=== PATIENT | female | born 1990 | race African-American/Black ===

== ENCOUNTER 2016-10-07 07:53 | Emergency (ER) | payer OTHER ==
[2016-10-07 08:02] VITALS: BP 140/74; PULSE 67; TEMP 98.6; BMI 22.4
[2016-10-07] MEDS: IBUPROFEN 400 MG TABLET (FP) PO ONE (08:49)
[2016-10-07] MEDS ORDERED: IBUPROFEN 400 MG TABLET (FP) PO ONE (08:50)
--- NOTE | 2016-10-07 08:50 | PDOC ---
History of Present Illness - General Chief Complaint: Pain, Acute Stated Complaint: KNEE PAIN Time Seen by Provider: 10/07/16 08:44 History Source: Patient Exam Limitations: No Limitations - History of Present Illness Initial Comments: 10/07/16 08:45 Patient is here with complaints of right knee swelling. Patient denies pain, denies any recent injury, denies any fevers redness or illness recently. 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 Occurred: reports: last week Severity: reports: mild Pain Location: reports: lower extremity (right knee ) Method of Injury: Yes: unknown Modifying Factors: improves with: None Past History - Travel Traveled outside of the country in the last 30 days: No Close contact w/someone who was outside of country & ill: No - Past Medical History Allergies/Adverse Reactions: Allergies Allergy/AdvReac Type Severity Reaction Status Date / Time No Known Allergies Allergy Verified 10/07/16 07:59 Home Medications: Ambulatory Orders NK [No Known Home Medication] 10/07/16 Other medical history: PATIENT DENIES MEDICAL HX - Psycho/Social/Smoking Cessation Hx Anxiety: No Suicidal Ideation: No Smoking History: Never smoked Hx Alcohol Use: Yes (occasionally) Drug/Substance Use Hx: No Trauma Specific PMHX - Complaint Specific PMHX Back Injury: No Neck Injury: No Review of Systems - Review of Systems Able to Perform ROS?: Yes Is the patient limited Swedish proficient: Yes Constitutional: Yes: See HPI. No: Symptoms Reported, Chills, Fever, Loss of Appetite, Malaise HEENTM: No: Symptoms Reported Respiratory: No: Symptoms reported ABD/GI: No: Symptoms Reported : No: Symptoms Reported Musculoskeletal: Yes: Symptoms Reported, See HPI, Joint Pain, Joint Swelling ( right knee ) Neurological: No: Symptoms reported All Other Systems: Reviewed and Negative *Physical Exam - Vital Signs Last Vital Signs Temp Pulse Resp BP Pulse Ox 98.6 F 67 16 140/74 100 10/07/16 07:55 10/07/16 07:55 10/07/16 07:55 10/07/16 07:55 10/07/16 07:55 - Physical Exam General Appearance: Yes: Nourished, Appropriately Dressed. No: Apparent Distress HEENT: positive: NAZARIO, Normal ENT Inspection, TMs Normal, Pharynx Normal Neck: positive: Supple Respiratory/Chest: positive: Lungs Clear, Normal Breath Sounds Musculoskeletal: positive: Normal Inspection. negative: Decreased Range of Motion Extremity: positive: Normal Capillary Refill, Normal Range of Motion, Other ( swelling and mild ballotment to right knee,. No produced tenderness to medial, lateral, posterior fossa ligaments. ). negative: Normal Inspection, Tender Integumentary: positive: Normal Color. 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, Fully Oriented, Alert, Normal Mood/ Affect, Normal Response, Motor Strength 5/5 Progress Note - Progress Note Progress Note: Right knee strain, will treat with immobilizer, NSAIDs and follow-up with orthopedist *DC/Admit/Observation/Transfer Diagnosis at time of Disposition: Strain of right knee Qualifiers: Encounter type: initial encounter Qualified Code(s): S86.911A - Strain of unspecified muscle(s) and tendon(s) at lower leg level, right leg, initial encounter - Discharge Dispostion Disposition: HOME Condition at time of disposition: Stable Admit: No - Referrals Referrals: Michael Guevara MD [Primary Care Provider] - Vik Mathew MD [Staff Physician] - - Patient Instructions Printed Discharge Instructions: DI for Knee Pain Additional Instructions: Rest, ice to area on and off for 15 minutes 4-6 times a day Avoid heavy lifting or exercise until pain and swelling is resolved or until further directed Keep area highly elevated to reduce swelling Use splints/Bartolo wrap as directed Followup with orthopedist in one to 2 days if not improving, if significantly improved may wait one week for followup with orthopedist May use ibuprofen 2-200 mg tablets every 6 hours as needed for pain
[2016-10-07] MEDS ORDERED: IBUPROFEN 100 MG/5 ML UNIT DOSE CUPS ONE (08:53)
== END 2016-10-07 09:04 | disposition home or self-care (01) ==
LOC: JERFT 07:53 → JER 07:53 → JERFT 09:04
PROC: 2W3LXYZ Immobilization of Right Lower Extremity using Other Device (ICD-10-PCS; principal; 2016-10-07)
DX: S86.811A Strain of other muscle(s) and tendon(s) at lower leg level, right leg, initial encounter (principal); X58.XXXA Exposure to other specified factors, initial encounter; Y93.89 Activity, other specified; Y92.89 Other specified places as the place of occurrence of the external cause
CPT/HCPCS: 99281-25

== ENCOUNTER 2017-08-11 10:15 | Emergency (ER) | payer SELFPAY ==
[2017-08-11 10:29] VITALS: BP 123/73; PULSE 90; TEMP 98.1; BMI 22.6
[2017-08-11] MEDS ORDERED: ONDANSETRON *ODT* 4 MG TABLET SL ONE (11:27)
--- NOTE | 2017-08-11 11:27 | PDOC ---
History of Present Illness - General Chief Complaint: Cold Symptoms Stated Complaint: COUGH, DIARRHEA Time Seen by Provider: 08/11/17 11:16 Past History - Past Medical History Allergies/Adverse Reactions: Allergies Allergy/AdvReac Type Severity Reaction Status Date / Time Penicillins Allergy Verified 08/11/17 10:25 Home Medications: Ambulatory Orders NK [No Known Home Medication] 10/07/16 CVA: No COPD: No DVT: No - Immunization History Immunization Up to Date: Yes - Suicide/Smoking/Psychosocial Hx Smoking History: Never smoked Have you smoked in the past 12 months: No Information on smoking cessation initiated: No Hx Alcohol Use: No Drug/Substance Use Hx: No Substance Use Type: None *Physical Exam - Vital Signs Last Vital Signs Temp Pulse Resp BP Pulse Ox 98.1 F 90 17 123/73 99 08/11/17 10:26 08/11/17 10:26 08/11/17 10:26 08/11/17 10:26 08/11/17 10:26 ED Treatment Course - LABORATORY CBC & Chemistry Diagram: 08/11/17 12:18 08/11/17 12:18 *DC/Admit/Observation/Transfer Diagnosis at time of Disposition: Gastroenteritis - Discharge Dispostion Disposition: HOME Condition at time of disposition: Stable Admit: No - Referrals Referrals: Brianna Abdi MD [Primary Care Provider] - - Patient Instructions Printed Discharge Instructions: DI for Viral Gastroenteritis -- Adult Additional Instructions: Your lab work today shows that you have a viral illness most likely causing your nausea, diarrhea and night sweats. This should go away on its own within the next the 3-5 days. Zofran was sent to your pharmacy for nausea. You may take this every 8 hours as needed for nausea. Drink plenty of fluids. Your ultrasound was negative for gallbladder issues. Please drink plenty of fluids and eat a bland diet including bananas, apple sauce, toast and plain rice. Please follow up with your primary care provider within the week if your symptoms are not resolving. Return to the ED if you have worsening abdominal pain, weakness, fatigue, shortness of breath, dehydration, or have any changes in your symptoms. - Post Discharge Activity Forms/Work/School Notes: Back to Work
--- NOTE | 2017-08-11 12:14 | PDOC ---
*Physical Exam - Vital Signs Last Vital Signs Temp Pulse Resp BP Pulse Ox 98.1 F 90 17 123/73 99 08/11/17 10:26 08/11/17 10:26 08/11/17 10:26 08/11/17 10:26 08/11/17 10:26 ED Treatment Course - LABORATORY CBC & Chemistry Diagram: 08/11/17 12:18 08/11/17 12:18 Medical Decision Making - Medical Decision Making 08/11/17 12:14 Pt seen by the Advanced Practice Provider under my direct supervision Ancillary studies reviewed I agree with plan as outlined by the Advanced Practice Provider SANDOR Limon *DC/Admit/Observation/Transfer Diagnosis at time of Disposition: Gastroenteritis - Discharge Dispostion Disposition: HOME Condition at time of disposition: Stable - Referrals Referrals: Brianna Abdi MD [Primary Care Provider] - - Patient Instructions Printed Discharge Instructions: DI for Viral Gastroenteritis -- Adult Additional Instructions: Your lab work today shows that you have a viral illness most likely causing your nausea, diarrhea and night sweats. This should go away on its own within the next the 3-5 days. Zofran was sent to your pharmacy for nausea. You may take this every 8 hours as needed for nausea. Drink plenty of fluids. Your ultrasound was negative for gallbladder issues. Please drink plenty of fluids and eat a bland diet including bananas, apple sauce, toast and plain rice. Please follow up with your primary care provider within the week if your symptoms are not resolving. Return to the ED if you have worsening abdominal pain, weakness, fatigue, shortness of breath, dehydration, or have any changes in your symptoms. - Post Discharge Activity Forms/Work/School Notes: Back to Work
[2017-08-11 12:25] LABS: URINE APPEARANCE CLEAR; URINE BILIRUBIN NEGATIVE (NEGATIVE); URINE BLOOD NEGATIVE (NEGATIVE); URINE COLOR DKYELLOW; URINE GLUCOSE (UA) NEGATIVE (NEGATIVE); URINE KETONE NEGATIVE (NEGATIVE); URINE LEUK ESTERASE NEGATIVE (NEGATIVE); URINE NITRITE NEGATIVE (NEGATIVE)
[2017-08-11 12:28] LABS: URINE PROTEIN 1+ (NEGATIVE)
[2017-08-11 12:29] LABS: EPI CELLS RARE /HPF (FEW); URINE MUCUS MODERATE
[2017-08-11 12:29] LABS: BASO % 0.9 % (0-2.0); EOS % 0.6 % (0-4.5); HEMATOCRIT 44.4 % (32.4-45.2); HEMOGLOBIN 14.5 GM/dL (10.7-15.3); LYMPH % 56.3 % (8-40); MCH 29.2 pg (25.7-33.7); MCHC 32.7 g/dl (32.0-36.0); MEAN CELL VOLUME 89.5 fl (80-96); MEAN PLT VOLUME 7.9 fl (7.5-11.1); MONO % 16.2 % (3.8-10.2); PLATELET COUNT 236 K/MM3 (134-434); RBC 4.96 M/mm3 (3.60-5.2); RDW 13.2 % (11.6-15.6); WHITE BLOOD COUNT 3.5 K/mm3 (4.0-10.0)
[2017-08-11 13:06] LABS: ALBUMIN 3.8 g/dl (3.4-5.0); ALK PHOS 89 U/L (45-117); ANION GAP 7 (8-16); BILIRUBIN,TOTAL 0.3 mg/dL (0.2-1.0); BLOOD UREA NITROGEN 11 mg/dL (7-18); CALCIUM 8.2 mg/dL (8.5-10.1); CHLORIDE 108 mmol/L (98-107); CO2 26 mmol/L (21-32); CREATININE 0.7 mg/dL (0.55-1.02); GLUCOSE,RANDOM 82 mg/dL (74-106); SGOT/AST 12 U/L (15-37); SGPT/ALT 14 U/L (12-78); SODIUM 141 mmol/L (136-145); TOT PROT 7.5 g/dl (6.4-8.2)
== END 2017-08-11 14:47 | disposition home or self-care (01) ==
LOC: JERFT 10:15 → JER 10:15
DX: K52.9 Noninfective gastroenteritis and colitis, unspecified (principal)
CPT/HCPCS: 36415; 76700-TC; 80053; 81003; 81015; 85025; 87086; 99281-25

== ENCOUNTER 2019-02-03 07:15 | Inpatient (IN) | payer OTHER | END 2019-02-06 13:40 | disposition home or self-care (01) | LOC: JLDR 07:15 → J3W 02-04 06:15 ==

== ENCOUNTER 2020-10-31 10:55 | Emergency (ER) | payer OTHER ==
[2020-10-31 11:01] VITALS: BP 136/91; PULSE 98; TEMP 99; BMI 24.8
[2020-10-31] MEDS ORDERED: ACETAMINOPHEN 500 MG TABLET (FP) PO ONE (11:23)
[2020-10-31] MEDS ORDERED: ACETAMINOPHEN 325 MG TABLET (FP) ONE (11:27)
== END 2020-10-31 13:10 | disposition home or self-care (01) ==
LOC: FER 10:55
DX: M25.561 Pain in right knee (principal)
CPT/HCPCS: 73562-TC-RT-FY; 99283-25

== ENCOUNTER 2021-08-12 09:46 | Emergency (ER) | payer OTHER ==
[2021-08-12 09:50] VITALS: BP 92/72; PULSE 80; TEMP 98.8; BMI 23.6
[2021-08-12] MEDS ORDERED: ACETAMINOPHEN 500 MG TABLET (FP) PO ONE (09:59)
[2021-08-12] MEDS ORDERED: ACETAMINOPHEN 500 MG TABLET (FP) ONE (10:46)
== END 2021-08-12 12:04 | disposition home or self-care (01) ==
LOC: FER 09:46
DX: R51.9 Headache, unspecified (principal); M54.50 Low back pain, unspecified
CPT/HCPCS: 70450-TC; 72125-TC; 72131-TC; 81025; 99285-25

== ENCOUNTER 2022-04-05 04:17 | Day surgery (SDC) | payer OTHER ==
[2022-04-02 10:03] VITALS: BMI 22.6
[2022-04-05] MEDS ORDERED: MIDAZOLAM HCL 2 MG/2 ML SINGLE DOSE VIAL ONE (11:12)
[2022-04-05] MEDS ORDERED: PROPOFOL 20 ML ONE (11:42)
[2022-04-05] MEDS ORDERED: ACETAMINOPHEN 325 MG TABLET (FP) PO PRN (12:02)
[2022-04-05] MEDS ORDERED: IBUPROFEN 400 MG TABLET (FP) PO PRN (12:02)
[2022-04-05] MEDS ORDERED: ONDANSETRON 4 MG/2 ML VIAL IVPUSH PRN (12:18)
[2022-04-05 13:36] VITALS: RESP 18; TEMP 97.3
[2022-04-05 14:01] VITALS: BP 122/76; PULSE 63
== END 2022-04-05 14:20 | disposition home or self-care (01) ==
LOC: JASU-SURG 04:17
PROVIDERS: ATTEND Specialist
PROC: 10D17ZZ Extraction of Products of Conception, Retained, Via Natural or Artificial Opening (ICD-10-PCS; principal; 2022-04-05 11:42)
DX: O02.1 Missed abortion (principal); Z3A.08 8 weeks gestation of pregnancy
CPT/HCPCS: 88305-TC; 94760

== ENCOUNTER 2022-12-22 12:04 | Emergency (ER) | payer OTHER ==
[2022-12-22 12:28] VITALS: BP 129/79; PULSE 73; RESP 18; TEMP 98; BMI 23.8
[2022-12-22 12:59] LABS: HCG,QUALITATIVE URINE Negative
[2022-12-22 13:00] LABS: EPITHELIAL CELLS FEW /hpf
[2022-12-22] MEDS ORDERED: CEPHALEXIN MONOHYDRATE 500 MG CAPSULE (UD) PO ONE (13:27)
[2022-12-22] MEDS ORDERED: CEPHALEXIN MONOHYDRATE 500 MG CAPSULE (UD) ONE (13:30)
== END 2022-12-22 13:38 | disposition home or self-care (01) ==
LOC: FER 12:04
DX: R10.30 Lower abdominal pain, unspecified (principal); R30.0 Dysuria; R35.0 Frequency of micturition; N30.00 Acute cystitis without hematuria
CPT/HCPCS: 81003; 81015; 84703; 87086; 87186; 99283-25

== ENCOUNTER 2023-07-20 12:31 | Emergency (ER) | payer OTHER ==
[2023-07-20 12:51] VITALS: BMI 25.7
[2023-07-20] MEDS ORDERED: LACTATED RINGERS SOLUTION 1000 ML INFUS.BAG IV ONE ×2 (13:18→15:13)
[2023-07-20] MEDS ORDERED: ACETAMINOPHEN 1000 MG/100 ML BAG IVPB ONE (13:18)
[2023-07-20] MEDS ORDERED: ACETAMINOPHEN INJECTION 100 ML IVPB ONE (13:27)
[2023-07-20 14:05] LABS: EPI CELLS 31 /uL (0-25.1); HYALINE CASTS 2 /uL (0-3.1); PH,URINE 6.5 (5.0-8.0); URINE APPEARANCE CLEAR; URINE BACTERIA 164 /uL (0-1359); URINE BILIRUBIN NEGATIVE (NEGATIVE); URINE COLOR YELLOW; URINE GLUCOSE (UA) NEGATIVE (NEGATIVE); URINE KETONE TRACE (NEGATIVE); URINE LEUK ESTERASE TRACE (NEGATIVE); URINE NITRITE NEGATIVE (NEGATIVE); URINE PROTEIN 1+ (NEGATIVE); URINE RBC 35 /uL (0-23.9); URINE WBC 21 /uL (0-25.8)
[2023-07-20 14:12] LABS: HEMATOCRIT 31.6 % (32.4-45.2); HEMOGLOBIN 10.3 GM/dL (10.7-15.3); MCH 27.5 pg (25.7-33.7); MCHC 32.5 g/dl (32.0-36.0); MEAN CELL VOLUME 84.8 fl (80-96); MEAN PLT VOLUME 8.6 fl (7.5-11.1); PLATELET COUNT 244 10^3/uL (134-434); RBC 3.73 M/mm3 (3.60-5.2); RDW 13.2 % (11.6-15.6)
[2023-07-20 14:22] LABS: POTASSIUM 4.3 mmol/L (3.5-5.1)
[2023-07-20 14:26] LABS: ALBUMIN 2.6 g/dl (3.4-5.0); BLOOD UREA NITROGEN 8.5 mg/dL (7-18)
[2023-07-20 14:29] LABS: CREATININE 0.7 mg/dL (0.55-1.3)
[2023-07-20 14:31] LABS: BILIRUBIN,TOTAL 0.3 mg/dL (0.2-1); TOT PROT 6.8 g/dl (6.4-8.2)
[2023-07-20 14:41] LABS: ANISOCYTOSIS 0; MACROCYTOSIS 0
[2023-07-20] MEDS ORDERED: CEPHALEXIN MONOHYDRATE 500 MG CAPSULE (UD) PO ONE (14:58)
[2023-07-20] MEDS ORDERED: OSELTAMIVIR PHOSPHATE 75 MG CAPSULE PO ONE (15:25)
[2023-07-20] MEDS ORDERED: OSELTAMIVIR PHOSPHATE 75 MG CAPSULE ONE (15:41)
[2023-07-20] MEDS ORDERED: CEPHALEXIN MONOHYDRATE 500 MG CAPSULE (UD) ONE (15:41)
[2023-07-20 17:11] VITALS: BP 109/67; PULSE 85; RESP 16; TEMP 99.1
== END 2023-07-20 17:56 | disposition home or self-care (01) ==
LOC: JER 12:31
PROC: 3E033NZ Introduction of Analgesics, Hypnotics, Sedatives into Peripheral Vein, Percutaneous Approach (ICD-10-PCS; principal; 2023-07-20)
DX: O99.891 Other specified diseases and conditions complicating pregnancy (principal); R55 Syncope and collapse; O99.513 Diseases of the respiratory system complicating pregnancy, third trimester; J10.1 Influenza due to other identified influenza virus with other respiratory manifestations; Z3A.31 31 weeks gestation of pregnancy; Z20.822 Contact with and (suspected) exposure to COVID-19
CPT/HCPCS: 0241U-QW; 36415; 80053; 81003; 84484; 85025; 86850; 86900; 86901; 87086; 93005; 93010; 99284-25

== ENCOUNTER 2023-09-16 07:45 | Inpatient (IN) | payer OTHER ==
[2023-09-16 09:05] LABS: BASO % 0.3 % (0-2.0); EOS % 0.8 % (0-4.5); HEMATOCRIT 30.8 % (32.4-45.2); HEMOGLOBIN 9.8 GM/dL (10.7-15.3); LYMPH % 34.8 % (8-40); MCH 25.1 pg (25.7-33.7); MCHC 31.9 g/dl (32.0-36.0); MEAN CELL VOLUME 78.9 fl (80-96); MEAN PLT VOLUME 9.4 fl (7.5-11.1); MONO % 10.9 % (3.8-10.2); NEUT % 53.2 % (42.8-82.8); PLATELET COUNT 225 10^3/uL (134-434); WHITE BLOOD COUNT 6.1 K/mm3 (4.0-10.0)
[2023-09-16 09:11] LABS: INR 0.9 (0.83-1.09); PROTHROMBIN TIME (PATIENT) 10.4 SEC (9.7-13.0)
[2023-09-16 09:14] LABS: ACTIVATED PTT 26.3 SECONDS (25.2-36.5)
[2023-09-16 09:25] LABS: CALCIUM 8.5 mg/dL (8.5-10.1)
[2023-09-16 09:26] LABS: BLOOD UREA NITROGEN 10.7 mg/dL (7-18)
[2023-09-16 09:30] LABS: CREATININE 0.7 mg/dL (0.55-1.3)
[2023-09-16 09:50] VITALS: BMI 27.3
[2023-09-16] MEDS ORDERED: OXYTOCIN 30 UNITS in 0.9% NS 30 UNIT/500 ML INFUS.BAG IVPB ONE (10:08)
[2023-09-16] MEDS: ELECTROLYTE-148 SOLN 1,000 ML IV SCH (10:25)
[2023-09-16] MEDS: OXYTOCIN 30 UNITS in 0.9% NS 30 UNIT/500 ML INFUS.BAG IVPB SCH (10:30)
[2023-09-16] MEDS ORDERED: BUTORPHANOL TARTRATE 2 MG/ML VIAL ONE (15:44)
[2023-09-16] MEDS ORDERED: PROMETHAZINE HCL 25 MG/1 ML VIAL ONE (15:44)
[2023-09-16] MEDS: PROMETHAZINE HCL 25 MG/1 ML VIAL IVPB ONE (15:50)
[2023-09-16] MEDS: BUTORPHANOL TARTRATE 2 MG/ML VIAL IVPB ONE (15:50)
[2023-09-16] MEDS ORDERED: BUTORPHANOL TARTRATE 1 MG/ML VIAL IVPB ONE (15:50)
[2023-09-16] MEDS ORDERED: OXYTOCIN 20 UNITS in 0.9% NS 20 UNIT/1,000 ML INFUS.BAG IV ONE (19:40)
[2023-09-16] MEDS: OXYTOCIN 20 UNITS in 0.9% NS 20 UNIT/1,000 ML INFUS.BAG IV SCH (19:55)
[2023-09-16] MEDS: MISOPROSTOL 200 MCG TABLET PR SCH (20:03)
[2023-09-16] MEDS: METHYLERGONOVINE MALEATE 0.2 MG/1 ML AMP IM PRN (20:03)
[2023-09-16] MEDS ORDERED: BENZOCAINE 20% 57 GM BOTTLE TP PRN (20:24)
[2023-09-16] MEDS ORDERED: WITCH HAZEL 50% (TUCKS) 40 PAD/JAR PAD TP PRN (20:24)
[2023-09-16] MEDS ORDERED: BISACODYL 10 MG SUPP.RECT RC PRN (20:24)
[2023-09-16] MEDS ORDERED: BENZOCAINE 28 GM HEMORRHOIDAL OINTMENT TP PRN (20:24)
[2023-09-16] MEDS ORDERED: ACETAMINOPHEN 325 MG TABLET (FP) PO PRN (20:24)
[2023-09-16] MEDS: CLINDAMYCIN 900 MG PREMIX IVPB 900 MG/50 ML BAG IVPB ONE (20:37)
[2023-09-16] MEDS ORDERED: GENTAMICIN SO4 80 MG/2 ML VIAL ONE (21:07)
[2023-09-16] MEDS ORDERED: SODIUM CHLORIDE 100 ML IVPB ONE (21:07)
[2023-09-16] MEDS: GENTAMICIN 80 MG PREMIXED IVPB 80 MG/100 ML BAG IVPB ONE (21:15)
[2023-09-16] MEDS ORDERED: MISOPROSTOL 200 MCG TABLET ONE (22:40)
[2023-09-17 00:06] VITALS: RESP 18
[2023-09-17 09:08] LABS: BASO % 0.2 % (0-2.0); HEMATOCRIT 28.7 % (32.4-45.2); HEMOGLOBIN 9.2 GM/dL (10.7-15.3); LYMPH % 20.7 % (8-40); MCH 25.3 pg (25.7-33.7); MCHC 31.9 g/dl (32.0-36.0); MEAN CELL VOLUME 79.3 fl (80-96); MEAN PLT VOLUME 9.8 fl (7.5-11.1); NEUT % 71.1 % (42.8-82.8); PLATELET COUNT 260 10^3/uL (134-434); RBC 3.62 M/mm3 (3.60-5.2); RDW 15.5 % (11.6-15.6); WHITE BLOOD COUNT 15.2 K/mm3 (4.0-10.0)
[2023-09-17] MEDS: PRENATAL VITAMINS W/ FOLIC ACID TABLET (FP) PO SCH (09:13)
[2023-09-17] MEDS: FERROUS SO4 325 MG TABLET (FP) PO SCH (09:13)
[2023-09-17] MEDS: IBUPROFEN 600 MG TABLET (FP) PO PRN (09:13)
[2023-09-17 09:20] LABS: POTASSIUM 4.1 mmol/L (3.5-5.1)
[2023-09-17 09:21] LABS: CALCIUM 8.4 mg/dL (8.5-10.1)
[2023-09-17 09:22] LABS: BLOOD UREA NITROGEN 9.4 mg/dL (7-18)
[2023-09-17 09:25] LABS: CREATININE 0.8 mg/dL (0.55-1.3)
[2023-09-17] MEDS ORDERED: SENNOSIDES/DOCUSATE COMBO (SENNA PLUS) TABLET (UD) PO PRN (22:00)
[2023-09-17 22:52] VITALS: PULSE 83
[2023-09-18 09:38] VITALS: BP 136/85; TEMP 98
== END 2023-09-18 12:25 | disposition home or self-care (01) | DRG 560 ==
LOC: JLDR 07:45 → J3W 22:15
PROVIDERS: ADMIT Obstetrics & Gynecology; ATTEND Obstetrics & Gynecology
PROC: 10E0XZZ Delivery of Products of Conception, External Approach (ICD-10-PCS; principal; 2023-09-16)
PROC: 0HQ9XZZ Repair Perineum Skin, External Approach (ICD-10-PCS; 2023-09-16)
DX: O70.0 First degree perineal laceration during delivery (principal); Z3A.39 39 weeks gestation of pregnancy; Z37.0 Single live birth
CPT/HCPCS: 36415; 80048; 85025; 85610; 85730; 86780; 86850; 86900; 86901

== ENCOUNTER 2024-02-10 10:57 | Emergency (ER) | payer OTHER ==
[2024-02-10 11:04] VITALS: BP 122/90; RESP 16; TEMP 99.5; BMI 24.4
[2024-02-10] MEDS ORDERED: ACETAMINOPHEN 500 MG TABLET (FP) ONE (11:19)
[2024-02-10] MEDS: ACETAMINOPHEN 500 MG TABLET (FP) PO ONE (11:24)
[2024-02-10 11:55] VITALS: PULSE 114
== END 2024-02-10 12:17 | disposition home or self-care (01) ==
LOC: FER 10:57
DX: R05.9 Cough, unspecified (principal); R06.02 Shortness of breath; B34.9 Viral infection, unspecified; Z20.822 Contact with and (suspected) exposure to COVID-19
CPT/HCPCS: 0241U-QW; 71046-TC-FY; 99284-25

== ENCOUNTER 2024-08-15 11:50 | Inpatient (IN) | payer OTHER ==
[2024-08-15] MEDS ORDERED: OXYTOCIN 30 UNITS in 0.9% NS 30 UNIT/500 ML INFUS.BAG IVPB ONE (14:10)
[2024-08-15] MEDS: LACTATED RINGERS SOLUTION 1,000 ML/1,000 ML INFUS.BAG IV SCH (14:25)
[2024-08-15] MEDS: OXYTOCIN 30 UNITS in 0.9% NS 30 UNIT/500 ML INFUS.BAG IVPB SCH (14:30)
[2024-08-15 14:56] VITALS: BMI 26.3
[2024-08-15 15:32] LABS: BASO % 0.8 % (0-2.0); HEMATOCRIT 29.3 % (32.4-45.2); HEMOGLOBIN 9.1 GM/dL (10.7-15.3); LYMPH % 21.9 % (8-40); MCH 20.7 pg (25.7-33.7); MEAN CELL VOLUME 66.8 fl (80-96); MEAN PLT VOLUME 8.7 fl (7.5-11.1); NEUT % 69.3 % (42.8-82.8); PLATELET COUNT 318 10^3/uL (134-434); RBC 4.38 M/mm3 (3.60-5.2); RDW 17.8 % (11.6-15.6); WHITE BLOOD COUNT 8.3 K/mm3 (4.0-10.0)
[2024-08-15 15:39] LABS: INR 0.93 (0.83-1.09); PROTHROMBIN TIME (PATIENT) 10.1 SEC (9.7-13.0)
[2024-08-15 15:41] LABS: ACTIVATED PTT 25.7 SECONDS (25.2-36.5)
[2024-08-15] MEDS ORDERED: OXYTOCIN 20 UNITS in 0.9% NS 20 UNIT/1,000 ML INFUS.BAG IV ONE (15:46)
[2024-08-15 15:55] LABS: ANISOCYTOSIS 2+; MACROCYTOSIS 0
[2024-08-15 15:56] LABS: BLOOD UREA NITROGEN 8.9 mg/dL (7-18); CALCIUM 8.8 mg/dL (8.5-10.1)
[2024-08-15 15:59] LABS: CREATININE 0.7 mg/dL (0.55-1.3)
[2024-08-15] MEDS ORDERED: PROMETHAZINE HCL 25 MG/1 ML VIAL ONE (18:26)
[2024-08-15] MEDS ORDERED: BUTORPHANOL TARTRATE 1 MG/ML VIAL ONE (18:26)
[2024-08-15] MEDS: BUTORPHANOL TARTRATE 1 MG/ML VIAL IVPB ONE (18:30)
[2024-08-15] MEDS: PROMETHAZINE HCL 25 MG/1 ML VIAL IVPB ONE (18:30)
[2024-08-15] MEDS: OXYTOCIN 20 UNITS in 0.9% NS 20 UNIT/1,000 ML INFUS.BAG IV SCH (20:28)
[2024-08-15] MEDS ORDERED: KETOROLAC TROMETHAMINE 30 MG/1 ML VIAL ONE (20:29)
[2024-08-15] MEDS ORDERED: METHYLERGONOVINE MALEATE 0.2 MG/1 ML AMP IM PRN (20:52)
[2024-08-15] MEDS ORDERED: BENZOCAINE 20% 57 GM BOTTLE TP PRN (20:52)
[2024-08-15] MEDS ORDERED: BENZOCAINE 28 GM HEMORRHOIDAL OINTMENT TP PRN (20:52)
[2024-08-15] MEDS ORDERED: WITCH HAZEL 50% (TUCKS) 40 PAD/JAR PAD TP PRN (20:52)
[2024-08-15] MEDS ORDERED: BISACODYL 10 MG SUPP.RECT RC PRN (20:52)
[2024-08-15] MEDS ORDERED: ACETAMINOPHEN 325 MG TABLET (FP) PO PRN (20:52)
[2024-08-15 21:36] LABS: CORD BASE EXCESS -11.3 mmol/L (0-2); CORD HCO3 17.2 mmHg (20-29); CORD PCO2 47.8 mmHg (30-78); CORD pH 7.174 (7.14-7.44)
[2024-08-15 21:38] LABS: CORD BASE EXCESS -6.6 mmol/L (0-2); CORD HCO3 18.7 mmHg (20-29); CORD PCO2 37.3 mmHg (30-78); CORD pH 7.319 (7.14-7.44)
[2024-08-15] MEDS: IBUPROFEN 600 MG TABLET (FP) PO PRN (23:10)
[2024-08-16] MEDS ORDERED: ACETAMINOPHEN 650 MG/20.3 ML ORAL SOLUTION (CUPS) PO PRN (00:29)
[2024-08-16] MEDS: IBUPROFEN 100 MG/5 ML UNIT DOSE CUPS PO PRN (04:02)
[2024-08-16 08:25] LABS: BASO % 0.2 % (0-2.0); EOS % 0.2 % (0-4.5); HEMOGLOBIN 8.2 GM/dL (10.7-15.3); MCH 20.7 pg (25.7-33.7); MCHC 30.4 g/dl (32.0-36.0); MEAN CELL VOLUME 67.9 fl (80-96); MEAN PLT VOLUME 8.6 fl (7.5-11.1); NEUT % 73.6 % (42.8-82.8); PLATELET COUNT 313 10^3/uL (134-434); RBC 3.98 M/mm3 (3.60-5.2); RDW 17.9 % (11.6-15.6); WHITE BLOOD COUNT 14.6 K/mm3 (4.0-10.0)
[2024-08-16] MEDS: IRON SUCROSE INJECTION 200 MG in SODIUM CHLORIDE 100 ML IVPB SCH (10:37)
[2024-08-16] MEDS: PRENATAL VITAMINS W/ FOLIC ACID TABLET (FP) PO SCH (10:37)
[2024-08-16 21:03] VITALS: RESP 16
[2024-08-16] MEDS ORDERED: SENNOSIDES/DOCUSATE COMBO (SENNA PLUS) TABLET (UD) PO PRN (22:00)
[2024-08-17 08:17] VITALS: BP 114/79; PULSE 94; TEMP 98.2
== END 2024-08-17 12:53 | disposition home or self-care (01) | DRG 560 ==
LOC: JDEL 11:50 → JLDR 13:55 → J3W 22:54
PROVIDERS: ADMIT Obstetrics & Gynecology; ATTEND Obstetrics & Gynecology
PROC: 10E0XZZ Delivery of Products of Conception, External Approach (ICD-10-PCS; principal; 2024-08-15)
DX: O80 Encounter for full-term uncomplicated delivery (principal); Z3A.39 39 weeks gestation of pregnancy; Z37.0 Single live birth
CPT/HCPCS: 36415; 36600; 59025; 59409; 80048; 82803; 85025; 85610; 85730; 86780; 86850; 86900; 86901; J1756